=== PATIENT | female | born 1945 | race African-American/Black ===

== ENCOUNTER 2022-04-25 09:03 | Inpatient (IN) ==
[2022-04-25 10:56] LABS: Basophils % 0.4 % (0.0-0.8); Eosinophils # 0.1 10*3/uL (0.0-0.87); Eosinophils % 1.2 % (0.00-10.9); Hematocrit 20.8 VOL% (35.7-47.0); Immature Granulocytes % 9.1 %; Immature Granulocytes Absolute 0.44 #; Lymphocytes # 0.1 10*3/uL (1.4-4.0); Lymphocytes % 2.7 % (21.3-54.2); Mean Corpuscular HGB Conc 31.3 GM/DL (32-36); Mean Corpuscular Volume 74.6 FL (87-102); Monocytes # 0.2 10*3/uL (0.11-0.8); Monocytes % 4.3 % (1.7-12.7); Neutrophils % 82.3 % (38.7-73.9); Platelet Count 184 T/CUMM (130-400); Red Blood Count 2.79 MC/CUMM (3.8-5.5); Red Cell Distribution Width 25.4 % (9.3-17.3); White Blood Count 4.8 T/CUMM (4-12)
[2022-04-25 11:00] LABS: Hemoglobin 6.5 GM/DL (12.0-16.0)
[2022-04-25] MEDS ORDERED: ALBUTEROL/IPRATROPIUM 3 ML NEB RESP TX STA (11:03)
[2022-04-25 11:09] LABS: INR 1.1; PT Patient Result 11.9 SECS (10.5-12.0); Partial Thromboplastin Time 29.8 SECS (23.7-32.9)
[2022-04-25 11:15] LABS: Eosinophils 1 % (0-10); Hypochromia 1+; Lymphocytes 1 % (20-55); Platelet Estimate Adequate; Total Cells Counted 100
[2022-04-25 11:16] LABS: Microcytosis 1+
[2022-04-25 11:21] LABS: Albumin 2.4 G/DL (3.4-5.0); Bilirubin,Total 0.7 MG/DL (0.20-1.00); Calcium 8.8 MG/DL (8.5-10.1); Osmolality,Calculated 264.2 MOS/KG (273-304); Potassium 3.7 MMOL/L (3.5-5.1); Total Protein 5.4 G/DL (6.4-8.2)
[2022-04-25] MEDS ORDERED: FUROSEMIDE 40 MG/4 ML VIAL ONE (12:37)
[2022-04-25] MEDS ORDERED: FUROSEMIDE 40 MG/4 ML VIAL IV STA (12:42)
[2022-04-25] MEDS ORDERED: GLUCAGON 1 MG VIAL IM PRN (12:53)
[2022-04-25] MEDS ORDERED: SODIUM CHLORIDE 0.9% 1,000 ML IV PRN ×2 (12:53→13:20)
[2022-04-25] MEDS ORDERED: DEXTROSE 10% 250 ML BAG IV PRN (12:53)
[2022-04-25] MEDS ORDERED: ONDANSETRON 4 MG/2 ML VIAL IV PRN (13:11)
[2022-04-25] MEDS ORDERED: ACETAMINOPHEN 325 MG TABLET PO PRN (13:11)
[2022-04-25] MEDS ORDERED: FUROSEMIDE 40 MG/4 ML VIAL IV PRN (13:21)
[2022-04-25] MEDS ORDERED: ALBUTEROL/IPRATROPIUM 3 ML NEB RESP TX PRN (13:56)
[2022-04-25] MEDS: PANTOPRAZOLE 40 MG TABLET PO SCH (14:23)
[2022-04-25] MEDS: ENOXAPARIN 40 MG/0.4 ML SYRINGE SUBCUT SCH (14:25)
[2022-04-25] MEDS: LEVOTHYROXINE 75 MCG TABLET PO SCH (14:28)
[2022-04-25 15:15] LABS: Free T4 (Free Thyroxine) 1.5 NG/DL (0.76-1.46)
[2022-04-25] MEDS: DILTIAZEM 30 MG TABLET PO SCH ×2 (17:45→21:19)
[2022-04-25] MEDS: CETIRIZINE 10 MG TABLET PO SCH (21:19)
[2022-04-25] MEDS: FLUCONAZOLE 200 MG TABLET PO SCH (21:19)
[2022-04-25] MEDS: ACYCLOVIR 200 MG CAPSULE PO SCH (21:19)
[2022-04-25] MEDS: PRIMIDONE 50 MG TABLET PO SCH (21:19)
[2022-04-26 05:13] LABS: Albumin 2.2 G/DL (3.4-5.0); Bilirubin,Total 0.9 MG/DL (0.20-1.00); Calcium 9.1 MG/DL (8.5-10.1); Potassium 3.6 MMOL/L (3.5-5.1); Total Protein 5.5 G/DL (6.4-8.2)
[2022-04-26 06:54] LABS: Basophils % 0.4 % (0.0-0.8); Eosinophils # 0.1 10*3/uL (0.0-0.87); Eosinophils % 2.4 % (0.00-10.9); Hematocrit 25.6 VOL% (35.7-47.0); Hemoglobin 8.1 GM/DL (12.0-16.0); Immature Granulocytes % 7.3 %; Immature Granulocytes Absolute 0.34 #; Lymphocytes # 0.1 10*3/uL (1.4-4.0); Lymphocytes % 2.4 % (21.3-54.2); Mean Corpuscular HGB Conc 31.6 GM/DL (32-36); Mean Corpuscular Volume 76.4 FL (87-102); Monocytes # 0.2 10*3/uL (0.11-0.8); Monocytes % 4.5 % (1.7-12.7); Platelet Count 91 T/CUMM (130-400); Red Blood Count 3.35 MC/CUMM (3.8-5.5); Red Cell Distribution Width 24.7 % (9.3-17.3); White Blood Count 4.7 T/CUMM (4-12)
[2022-04-26 07:15] LABS: Eosinophils 1 % (0-10); Hypochromia 1+; Lymphocytes 3 % (20-55); Microcytosis 1+; Platelet Estimate Decreased; Total Cells Counted 100
[2022-04-26] MEDS ORDERED: MAGNESIUM SULF RIDER 2 GM/50 ML PREMIX IV ONE (07:46)
[2022-04-26] MEDS ORDERED: FUROSEMIDE 40 MG/4 ML VIAL IV ONE (09:14)
[2022-04-26] MEDS: IPRATROPIUM 0.03% NASAL SPRAY 30 ML BOTTLE BOTH NARES SCH ×4 (09:37→20:40)
[2022-04-26] MEDS: ZINC GLUCONATE 50 MG TABLET PO SCH (09:37)
[2022-04-26] MEDS: DILTIAZEM 30 MG TABLET PO SCH ×4 (09:37→20:38)
[2022-04-26] MEDS: PANTOPRAZOLE 40 MG TABLET PO SCH (09:38)
[2022-04-26] MEDS: LEVOTHYROXINE 75 MCG TABLET PO SCH (09:38)
[2022-04-26] MEDS: ACYCLOVIR 200 MG CAPSULE PO SCH ×2 (09:38→20:38)
[2022-04-26] MEDS: CHOLECALCIFEROL 1,000 UNIT TABLET PO SCH (09:38)
[2022-04-26] MEDS: PRIMIDONE 50 MG TABLET PO SCH ×2 (09:38→20:38)
[2022-04-26 10:12] LABS: Arterial Base Excess iSTAT 9 MMOL/L (-2.5-2.5); Arterial Bicarbonate iSTAT 33.1 MMOL/L (20-26); Arterial O2 Saturation iSTAT 99 % (95-100); Arterial PCO2 iSTAT 42 MM HG (35-48); Arterial PO2 iSTAT 121 MM HG (80-95); Arterial Total CO2 iSTAT 34 MMO/L (23-27); Arterial pH iSTAT 7.501 (7.35-7.45)
[2022-04-26] MEDS ORDERED: AZITHROMYCIN INJ 500 MG in SODIUM CHLORIDE 0.9% 250 ML IV ONE (13:15)
[2022-04-26] MEDS ORDERED: MELATONIN 3 MG TABLET PO PRN (13:15)
[2022-04-26] MEDS: ENOXAPARIN 40 MG/0.4 ML SYRINGE SUBCUT SCH (14:34)
[2022-04-26] MEDS: FAMOTIDINE 20 MG TABLET PO SCH (20:38)
[2022-04-26] MEDS: CETIRIZINE 10 MG TABLET PO SCH (20:38)
[2022-04-26] MEDS: FLUCONAZOLE 200 MG TABLET PO SCH (20:38)
[2022-04-27 05:29] LABS: Basophils % 0.7 % (0.0-0.8); Eosinophils # 0.2 10*3/uL (0.0-0.87); Eosinophils % 5.5 % (0.00-10.9); Hematocrit 24.9 VOL% (35.7-47.0); Hemoglobin 7.9 GM/DL (12.0-16.0); Immature Granulocytes % 5.2 %; Immature Granulocytes Absolute 0.14 #; Lymphocytes # 0.1 10*3/uL (1.4-4.0); Lymphocytes % 4.1 % (21.3-54.2); Mean Corpuscular HGB Conc 31.7 GM/DL (32-36); Mean Corpuscular Volume 77.3 FL (87-102); Monocytes # 0.2 10*3/uL (0.11-0.8); Monocytes % 8.1 % (1.7-12.7); Neutrophils % 76.4 % (38.7-73.9); PT Patient Result 11.3 SECS (10.5-12.0); Platelet Count 95 T/CUMM (130-400); Red Blood Count 3.22 MC/CUMM (3.8-5.5); Red Cell Distribution Width 23.9 % (9.3-17.3); White Blood Count 2.7 T/CUMM (4-12)
[2022-04-27 05:33] LABS: Calcium 9.1 MG/DL (8.5-10.1); Osmolality,Calculated 267.1 MOS/KG (273-304); Potassium 3.3 MMOL/L (3.5-5.1)
[2022-04-27 05:47] LABS: Albumin 2.1 G/DL (3.4-5.0); Bilirubin,Total 0.6 MG/DL (0.20-1.00); Calcium 9.1 MG/DL (8.5-10.1); Ferritin 2294.6 ng/mL (8-252); Osmolality,Calculated 266.1 MOS/KG (273-304); Potassium 3.2 MMOL/L (3.5-5.1); Total Protein 5.6 G/DL (6.4-8.2)
[2022-04-27 06:37] LABS: Anisocytosis 2+; Elliptocytes Few; Eosinophils 5 % (0-10); Helmet Cells Few; Hypochromia 3+; Lymphocytes 1 % (20-55); Poikilocytosis 2+; Total Cells Counted 100
[2022-04-27 06:39] LABS: Platelet Estimate Adequate; Tear Drop Cells Few
[2022-04-27] MEDS ORDERED: POTASSIUM CHLORIDE 20 MEQ TABLET PO ONE (08:05)
[2022-04-27] MEDS: FAMOTIDINE 20 MG TABLET PO SCH ×2 (09:07→21:02)
[2022-04-27] MEDS: PANTOPRAZOLE 40 MG TABLET PO SCH (09:09)
[2022-04-27] MEDS: ACYCLOVIR 200 MG CAPSULE PO SCH ×2 (09:09→21:03)
[2022-04-27] MEDS: CHOLECALCIFEROL 1,000 UNIT TABLET PO SCH (09:10)
[2022-04-27] MEDS: PRIMIDONE 50 MG TABLET PO SCH ×2 (09:10→21:03)
[2022-04-27] MEDS: LEVOTHYROXINE 75 MCG TABLET PO SCH (09:10)
[2022-04-27] MEDS: AZITHROMYCIN 250 MG TABLET PO SCH (09:10)
[2022-04-27] MEDS: DEXAMETHASONE 4 MG/1 ML VIAL IV SCH (09:11)
[2022-04-27] MEDS: DILTIAZEM 30 MG TABLET PO SCH ×4 (09:11→21:03)
[2022-04-27] MEDS: ZINC GLUCONATE 50 MG TABLET PO SCH (09:11)
[2022-04-27] MEDS: IPRATROPIUM 0.03% NASAL SPRAY 30 ML BOTTLE BOTH NARES SCH ×3 (12:14→21:02)
[2022-04-27] MEDS: ALBUTEROL INHALER 18 GM INH SCH ×2 (13:21→18:05)
[2022-04-27] MEDS: ENOXAPARIN 40 MG/0.4 ML SYRINGE SUBCUT SCH (13:22)
[2022-04-27] MEDS: FUROSEMIDE 40 MG/4 ML VIAL IV SCH (16:56)
[2022-04-27] MEDS: FLUCONAZOLE 200 MG TABLET PO SCH (21:03)
[2022-04-27] MEDS: CETIRIZINE 10 MG TABLET PO SCH (21:03)
[2022-04-28] MEDS: ALBUTEROL INHALER 18 GM INH SCH ×4 (01:00→18:00)
[2022-04-28 05:28] LABS: Basophils % 0.4 % (0.0-0.8); Eosinophils % 1.4 % (0.00-10.9); Hematocrit 27.9 VOL% (35.7-47.0); Hemoglobin 8.9 GM/DL (12.0-16.0); Immature Granulocytes % 3.9 %; Immature Granulocytes Absolute 0.11 #; Lymphocytes # 0.2 10*3/uL (1.4-4.0); Lymphocytes % 5.4 % (21.3-54.2); Mean Corpuscular HGB Conc 31.9 GM/DL (32-36); Mean Corpuscular Volume 76.9 FL (87-102); Monocytes # 0.2 10*3/uL (0.11-0.8); Monocytes % 7.2 % (1.7-12.7); Neutrophils % 81.7 % (38.7-73.9); Platelet Count 119 T/CUMM (130-400); Red Blood Count 3.63 MC/CUMM (3.8-5.5); White Blood Count 2.8 T/CUMM (4-12)
[2022-04-28 05:50] LABS: Calcium 9.5 MG/DL (8.5-10.1); Osmolality,Calculated 267.2 MOS/KG (273-304)
[2022-04-28 06:18] LABS: Albumin 2.6 G/DL (3.4-5.0); Bilirubin,Total 0.6 MG/DL (0.20-1.00); Calcium 9.7 MG/DL (8.5-10.1); Ferritin 2344.6 ng/mL (8-252); Osmolality,Calculated 265.4 MOS/KG (273-304); Potassium 3.9 MMOL/L (3.5-5.1)
[2022-04-28 07:08] LABS: Elliptocytes Few; Poikilocytosis 1+; Schistocytes Few
[2022-04-28 07:09] LABS: Hypochromia Slight; Microcytosis 1+
[2022-04-28 07:10] LABS: Platelet Estimate Normal
[2022-04-28] MEDS: PRIMIDONE 50 MG TABLET PO SCH ×2 (08:41→22:31)
[2022-04-28] MEDS: FAMOTIDINE 20 MG TABLET PO SCH ×2 (08:41→22:31)
[2022-04-28] MEDS: DEXAMETHASONE 4 MG/1 ML VIAL IV SCH (08:41)
[2022-04-28] MEDS: IPRATROPIUM 0.03% NASAL SPRAY 30 ML BOTTLE BOTH NARES SCH ×3 (08:41→22:57)
[2022-04-28] MEDS: FUROSEMIDE 40 MG/4 ML VIAL IV SCH ×2 (08:41→17:00)
[2022-04-28] MEDS: CHOLECALCIFEROL 1,000 UNIT TABLET PO SCH (08:41)
[2022-04-28] MEDS: PANTOPRAZOLE 40 MG TABLET PO SCH (08:41)
[2022-04-28] MEDS: AZITHROMYCIN 250 MG TABLET PO SCH (08:41)
[2022-04-28] MEDS: DILTIAZEM 30 MG TABLET PO SCH ×4 (08:42→22:29)
[2022-04-28] MEDS: ZINC GLUCONATE 50 MG TABLET PO SCH (08:42)
[2022-04-28] MEDS: ACYCLOVIR 200 MG CAPSULE PO SCH ×2 (08:42→22:30)
[2022-04-28] MEDS: LEVOTHYROXINE 75 MCG TABLET PO SCH (08:42)
[2022-04-28] MEDS ORDERED: REMDESIVIR 200 MG in SODIUM CHLORIDE 0.9% 210 ML IV ONE (12:00)
[2022-04-28] MEDS: FLUCONAZOLE 200 MG TABLET PO SCH (22:30)
[2022-04-28] MEDS: APIXABAN 2.5 MG TABLET PO SCH (22:31)
[2022-04-28] MEDS: CETIRIZINE 10 MG TABLET PO SCH (22:31)
[2022-04-29 06:02] LABS: Basophils % 0.3 % (0.0-0.8); Hematocrit 28.5 VOL% (35.7-47.0); Immature Granulocytes % 5.6 %; Immature Granulocytes Absolute 0.17 #; Lymphocytes # 0.2 10*3/uL (1.4-4.0); Lymphocytes % 6.6 % (21.3-54.2); Mean Corpuscular HGB Conc 31.6 GM/DL (32-36); Mean Corpuscular Volume 77.4 FL (87-102); Monocytes # 0.2 10*3/uL (0.11-0.8); Monocytes % 7.3 % (1.7-12.7); Neutrophils % 79.2 % (38.7-73.9); Platelet Count 157 T/CUMM (130-400); Red Blood Count 3.68 MC/CUMM (3.8-5.5); Red Cell Distribution Width 24.3 % (9.3-17.3)
[2022-04-29 06:23] LABS: Calcium 9.3 MG/DL (8.5-10.1); Osmolality,Calculated 280.4 MOS/KG (273-304)
[2022-04-29 06:28] LABS: Eosinophils 3 % (0-10); Lymphocytes 4 % (20-55); Total Cells Counted 100
[2022-04-29 06:29] LABS: Anisocytosis 1+; Elliptocytes Few; Hypochromia 1+; Microcytosis 1+
[2022-04-29 06:30] LABS: Platelet Estimate Adequate
[2022-04-29 06:33] LABS: Albumin 2.7 G/DL (3.4-5.0); Bilirubin,Total 0.4 MG/DL (0.20-1.00); Calcium 9.6 MG/DL (8.5-10.1); Ferritin 2580.4 ng/mL (8-252); Osmolality,Calculated 273.8 MOS/KG (273-304); Potassium 3.9 MMOL/L (3.5-5.1); Total Protein 6.1 G/DL (6.4-8.2)
[2022-04-29] MEDS: ALBUTEROL INHALER 18 GM INH SCH ×4 (07:38→18:25)
[2022-04-29] MEDS: FAMOTIDINE 20 MG TABLET PO SCH ×2 (10:09→22:16)
[2022-04-29] MEDS: LEVOTHYROXINE 75 MCG TABLET PO SCH (10:09)
[2022-04-29] MEDS: CHOLECALCIFEROL 1,000 UNIT TABLET PO SCH (10:09)
[2022-04-29] MEDS: PANTOPRAZOLE 40 MG TABLET PO SCH (10:10)
[2022-04-29] MEDS: APIXABAN 2.5 MG TABLET PO SCH ×2 (10:10→22:16)
[2022-04-29] MEDS: PRIMIDONE 50 MG TABLET PO SCH ×2 (10:10→22:16)
[2022-04-29] MEDS: ACYCLOVIR 200 MG CAPSULE PO SCH ×2 (10:10→22:16)
[2022-04-29] MEDS: FUROSEMIDE 40 MG/4 ML VIAL IV SCH ×2 (10:10→16:53)
[2022-04-29] MEDS: AZITHROMYCIN 250 MG TABLET PO SCH (10:10)
[2022-04-29] MEDS: ZINC GLUCONATE 50 MG TABLET PO SCH (10:10)
[2022-04-29] MEDS: DEXAMETHASONE 4 MG/1 ML VIAL IV SCH (10:11)
[2022-04-29] MEDS: IPRATROPIUM 0.03% NASAL SPRAY 30 ML BOTTLE BOTH NARES SCH ×3 (10:11→22:15)
[2022-04-29] MEDS: REMDESIVIR 100 MG in SODIUM CHLORIDE 0.9% 100 ML IV SCH (10:12)
[2022-04-29] MEDS: DILTIAZEM 30 MG TABLET PO SCH ×4 (10:24→22:18)
[2022-04-29] MEDS: CETIRIZINE 10 MG TABLET PO SCH (22:16)
[2022-04-29] MEDS: FLUCONAZOLE 200 MG TABLET PO SCH (22:18)
[2022-04-30] MEDS: ALBUTEROL INHALER 18 GM INH SCH (01:11)
[2022-04-30 05:29] LABS: Basophils % 0.8 % (0.0-0.8); Eosinophils % 0.8 % (0.00-10.9); Hematocrit 29.7 VOL% (35.7-47.0); Hemoglobin 9.2 GM/DL (12.0-16.0); Immature Granulocytes % 2.9 %; Immature Granulocytes Absolute 0.07 #; Lymphocytes # 0.2 10*3/uL (1.4-4.0); Lymphocytes % 7.3 % (21.3-54.2); Mean Corpuscular Volume 77.5 FL (87-102); Monocytes # 0.2 10*3/uL (0.11-0.8); Monocytes % 9.8 % (1.7-12.7); Neutrophils % 78.4 % (38.7-73.9); Platelet Count 224 T/CUMM (130-400); Red Blood Count 3.83 MC/CUMM (3.8-5.5); Red Cell Distribution Width 25.2 % (9.3-17.3); White Blood Count 2.5 T/CUMM (4-12)
[2022-04-30 05:47] LABS: Calcium 9.4 MG/DL (8.5-10.1); Osmolality,Calculated 280.4 MOS/KG (273-304); Potassium 4.4 MMOL/L (3.5-5.1)
[2022-04-30 06:17] LABS: Albumin 2.5 G/DL (3.4-5.0); Bilirubin,Total 0.4 MG/DL (0.20-1.00); Calcium 9.3 MG/DL (8.5-10.1); Ferritin 1874.4 ng/mL (8-252); Osmolality,Calculated 279.5 MOS/KG (273-304); Potassium 4.3 MMOL/L (3.5-5.1); Total Protein 5.9 G/DL (6.4-8.2)
[2022-04-30] MEDS ORDERED: predniSONE 20 MG TABLET PO SCH (09:00)
[2022-04-30] MEDS: FUROSEMIDE 40 MG/4 ML VIAL IV SCH (09:11)
[2022-04-30] MEDS: AZITHROMYCIN 250 MG TABLET PO SCH (10:16)
[2022-04-30] MEDS: CHOLECALCIFEROL 1,000 UNIT TABLET PO SCH (10:16)
[2022-04-30] MEDS: ZINC GLUCONATE 50 MG TABLET PO SCH (10:16)
[2022-04-30] MEDS: PANTOPRAZOLE 40 MG TABLET PO SCH (10:17)
[2022-04-30] MEDS: APIXABAN 2.5 MG TABLET PO SCH (10:17)
[2022-04-30] MEDS: LEVOTHYROXINE 75 MCG TABLET PO SCH (10:17)
[2022-04-30] MEDS: FAMOTIDINE 20 MG TABLET PO SCH (10:17)
[2022-04-30] MEDS: ACYCLOVIR 200 MG CAPSULE PO SCH (10:17)
[2022-04-30] MEDS: PRIMIDONE 50 MG TABLET PO SCH (10:56)
[2022-04-30] MEDS: IPRATROPIUM 0.03% NASAL SPRAY 30 ML BOTTLE BOTH NARES SCH (10:57)
[2022-04-30] MEDS: DILTIAZEM 30 MG TABLET PO SCH ×2 (11:03→15:21)
[2022-04-30] MEDS: REMDESIVIR 100 MG in SODIUM CHLORIDE 0.9% 100 ML IV SCH (12:09)
[2022-04-30 12:21] VITALS: BP 112/73
== END 2022-04-30 14:22 | disposition home or self-care (01) | DRG 177 ==
LOC: N.ED 09:03 → SUATTDRO 13:00 → N.EDINP 13:00 → N.TELEN 18:10
PROVIDERS: ADMIT Internal Medicine; ATTEND Internal Medicine